=== PATIENT | female | born 1935 | race Caucasian/White ===

== ENCOUNTER 2017-01-01 15:34 | Emergency (ER) | payer MEDICARE, BC ==
[~2017-01-01] VITALS: Ht 165.1 cm; Wt 77.2 kg
[~2017-01-01 15:34] MED LIST: ABAT1INJ SC; GLIP5 PO; GLUCTAB OR; OMEP20TA OR; SPIR100 PO; TOPR25TA2 PO; TOVI8TAB PO; VENL75XR PO; XARE20TA OR
[2017-01-01 15:51] VITALS: BP 168/72; PULSE 60; RESP 16; TEMP 98.5; O2SAT 95
[2017-01-01 15:55] VITALS: RESP 16; O2SAT 95
[2017-01-01] MEDS ORDERED: HYDROmorphone HCL PF 1 MG/ML VIAL IV PUSH ONE (16:15)
[2017-01-01] MEDS ORDERED: SODIUM CHLORIDE 0.9% FLUSH 10 ML FLUSH IVF PRN (16:15)
--- NOTE | 2017-01-01 16:19 | PD ---
HPI Chief Complaint: Fall Time Seen by Provider: 16:08 Travel History International Travel<30 days: No Contact w/Intl Traveler<30days: No Traveled to known affect area: No History of Present Illness HPI 81-year-old female here for evaluation of back pain, right-sided rib pain, right upper quadrant abdominal pain, and buttock pain after slipping and falling in the shower at around 2:30 PM this evening. Patient is on Xarelto for history of pulmonary embolism. She denies head injury or LOC. Pain is moderate to severe, constant, worse with movement, palpation, and inspiration. She denies dyspnea. PFSH Past Medical History Hx Anticoagulant Therapy: Yes Arthritis: Yes (rheumatoid) Asthma: No Autoimmune Disease: Yes (RA) Blood Disorders: No Anxiety: Yes Depression: Yes Heart Rhythm Problems: Yes Cancer: Yes (SKIN MELANOMA) Cardiovascular Problems: No High Cholesterol: No Chemotherapy: No Chest Pain: No Congestive Heart Failure: No COPD: No Cerebrovascular Accident: Yes Diabetes: Yes Patient Takes Glucophage: Yes Diminished Hearing: No Endocrine: Yes Gastrointestinal Disorders: Yes GERD: Yes Genitourinary: No Hepatitis: No Hiatal Hernia: No Hypertension: No Immune Disorder: Yes (RA) Implanted Vascular Access Dvce: Yes Medical other: Yes (reflux,,rheumatoid arthritis) Musculoskeletal: Yes Neurologic: Yes Psychiatric: Yes Reproductive: Yes (frequent urinating) Respiratory: Yes (PULMONARY HYPERTENSION) Immunizations Current: Yes Myocardial Infarction: No Sleep Apnea: No Thyroid Disease: No Ulcer: No Tetanus Vaccination: < 5 Years Influenza Vaccination: Yes Past Surgical History Abdominal Surgery: Yes (gallbladder removed) AICD: No Cardiac Surgery: Yes (pacemaker insertion) Cholecystectomy: Yes Eye Surgery: Yes ([place] cataract surgery) Genitourinary Surgery: Yes (bladder sling) Gynecologic Surgery: Yes (hysterectomy) Hysterectomy: Yes Joint Replacement: Yes (LEFT KNEE REPLACEMENT, RIGHT HIP) Pacemaker: Yes Other Surgery: Yes Social History Alcohol Use: Yes (SPECIAL OCCASIONS) Tobacco Use: No (quit in 1985) Substance Use: No Allergies-Medications (Allergen,Severity, Reaction): Coded Allergies: Morphine (Verified Allergy, Severe, Itching, 01/01/17) itching Penicillin (Verified Allergy, Severe, Itching, 01/01/17) Reported Meds & Prescriptions Reported Meds & Active Scripts Active Reported Prednisone 20 Mg Tab Unknown Dose PO DIRECTED 40 MG twice a day x 3 days, then 20 MG daily x 3 days, then 10 MG daily x 3 days Breo Ellipta Inh (Fluticasone/Vilanterol) 100-25 Mcg/Act Inh 1 Puff INH DAILY Use daily at the same time. Orencia Inj (Abatacept Inj) 125 Mg/Ml Syr Unknown Dose IV FLUSH WEEKLY EVERY 4 WEEKS Xarelto (Rivaroxaban) 20 Mg Tab 20 Mg PO DAILY Macrodantin (Nitrofurantoin Macrocrystal) 50 Mg Cap 50 Mg PO DAILY Metoprolol Succinate ER 24 HR (Metoprolol Succinate) 25 Mg Tab Unknown Dose PO DAILY Effexor XR 24 HR (Venlafaxine HCl) 75 Mg Cap 75 Mg PO DAILY Spironolactone 100 Mg Tab 100 Mg PO DAILY Omeprazole 20 Mg Tab 20 Mg PO DAILY Metformin (Metformin HCl) 500 Mg Tab 500 Mg PO DAILY With a meal Glipizide 5 Mg Tab 5 Mg PO DAILY Take 30 minutes before a meal Review of Systems Except as stated in HPI: all other systems reviewed are Neg Physical Exam Narrative GENERAL: Well-developed, well-nourished, awake, alert, GCS 15, no acute distress. SKIN: Focused skin assessment warm/dry. No lacerations or abrasions. Slight ecchymosis to right foot and ankle which patient states is old. HEAD: Atraumatic. Normocephalic. EYES: Pupils equal and round. No scleral icterus. No injection or drainage. ENT: Mucous membranes pink and moist. NECK: Trachea midline. No JVD. No midline cervical spinous step-off or tenderness. CARDIOVASCULAR: Regular rate and rhythm. Distal pulses brisk and equal bilaterally. RESPIRATORY: No accessory muscle use. Clear to auscultation. Breath sounds equal bilaterally. GASTROINTESTINAL: Abdomen soft, non-tender, nondistended. MUSCULOSKELETAL: No obvious deformities. No clubbing. No cyanosis. No edema. Right anterior/lateral/posterior chest wall tenderness without step-off, without crepitus, without paradoxical chest wall movement. Mild midline thoracic spine and lumbar spine tenderness without step-off. Pelvis is stable. Normal range of motion in all joints and extremities without obvious deformity. NEUROLOGICAL: Awake and alert. No obvious cranial nerve deficits. Motor grossly within normal limits. Normal speech. PSYCHIATRIC: Appropriate mood and affect; insight and judgment normal. Data Data Last Documented VS Vital Signs Date Time Temp Pulse Resp B/P Pulse Ox O2 Delivery O2 Flow Rate FiO2 01/01/17 17:42 60 16 138/55 95 Room Air 01/01/17 15:51 98.5 Orders Comprehensive Metabolic Panel (01/01/17 16:15) Complete Blood Count With Diff (01/01/17 16:15) Prothrombin Time / Inr (Pt) (01/01/17 16:15) Act Partial Throm Time (Ptt) (01/01/17 16:15) Type And Screen (01/01/17 16:15) Chest, Single Ap (01/01/17 16:15) Pelvis, Ap Only (Routine) (01/01/17 16:15) Ct Brain W/O Iv Contrast(Rout) (01/01/17 16:15) Ct Cerv Spine W/O Contrast (01/01/17 16:15) Ct Abd/Pel W Iv Contrast(Rout) (01/01/17 16:15) Ct Thorax/ Chest W Iv Contrast (01/01/17 16:15) Ct Thor Spine W/O Contrast (01/01/17 16:15) Ct Lumb Spine W/O Contrast (01/01/17 16:15) Iv Access Insert/Monitor (01/01/17 16:15) Ecg Monitoring (01/01/17 16:15) Oximetry (01/01/17 16:15) Oxygen Administration (01/01/17 16:15) Sodium Chloride 0.9% Flush (Ns Flush) (01/01/17 16:15) Hydromorphone Pf Inj (Dilaudid Pf Inj) (01/01/17 16:15) Iohexol 350 Inj (Omnipaque 350 Inj) (01/01/17 18:31) Labs Laboratory Tests Test 01/01/17 16:56 White Blood Count 16.4 TH/MM3 Red Blood Count 4.36 MIL/MM3 Hemoglobin 10.8 GM/DL Hematocrit 33.3 % Mean Corpuscular Volume 76.4 FL Mean Corpuscular Hemoglobin 24.7 PG Mean Corpuscular Hemoglobin 32.3 % Concent Red Cell Distribution Width 17.5 % Platelet Count 314 TH/MM3 Mean Platelet Volume 7.6 FL Neutrophils (%) (Auto) 89.0 % Lymphocytes (%) (Auto) 4.6 % Monocytes (%) (Auto) 5.4 % Eosinophils (%) (Auto) 0.2 % Basophils (%) (Auto) 0.8 % Neutrophils # (Auto) 14.6 TH/MM3 Lymphocytes # (Auto) 0.8 TH/MM3 Monocytes # (Auto) 0.9 TH/MM3 Eosinophils # (Auto) 0.0 TH/MM3 Basophils # (Auto) 0.1 TH/MM3 CBC Comment AUTO DIFF Differential Comment AUTO DIFF CONFIRMED Red Cell Morphology Comment NORMAL Prothrombin Time 13.4 SEC Prothromb Time International 1.2 RATIO Ratio Activated Partial 31.7 SEC Thromboplast Time Sodium Level 135 MEQ/L Potassium Level 4.3 MEQ/L Chloride Level 98 MEQ/L Carbon Dioxide Level 25.0 MEQ/L Anion Gap 12 MEQ/L Blood Urea Nitrogen 17 MG/DL Creatinine 1.10 MG/DL Estimat Glomerular Filtration 48 ML/MIN Rate Random Glucose 262 MG/DL Calcium Level 8.9 MG/DL Total Bilirubin 0.7 MG/DL Aspartate Amino Transf 17 U/L (AST/SGOT) Alanine Aminotransferase 19 U/L (ALT/SGPT) Alkaline Phosphatase 91 U/L Total Protein 7.8 GM/DL Albumin 3.6 GM/DL Blood Type A POSITIVE Antibody Screen NEGATIVE MDM Medical Decision Making Medical Screen Exam Complete: Yes Emergency Medical Condition: Yes Differential Diagnosis Intrathoracic trauma, intra-abdominal trauma, intracranial trauma, vertebral injury Narrative Course Initial vital signs show heart rate 60, blood pressure 168/72, pulse ox 95% on room air, oral temp of 98.5F. CBC shows WBC 16.4, hemoglobin 10.8, hematocrit 33.3, platelets 314, neutrophils 89% (The patient is on prednisone) CMP is remarkable for creatinine 1.1, GFR 48, random glucose 262, otherwise unremarkable. Pelvis x-ray: No acute bony injury. Chest x-ray: Pacemaker device is noted with control pack over the left chest. Lungs are focally clear. No pleural effusion is identified. Cardiac contours are satisfactory. There is a fracture of the right proximal humeral neck, potentially old.. CONCLUSION: No acute cardiopulmonary disease. CT head: CONCLUSION: Normal examination for a patient of this age. CT cervical spine: CONCLUSION: 1. No acute findings. Exam within normal limits for age. Facet arthropathy and mild degenerative disc disease. No canal stenosis. CT thorax: CONCLUSION: 1. Minimal left basilar scarring or atelectasis. No effusion or pneumothorax. No traumatic injury identified in the thorax. CT abdomen pelvis: CONCLUSION: 1. 5.4 x 2 cm hematoma in the upper right gluteal region near the midline with associated subcutaneous bruising. No acute fracture. No acute traumatic injury identified within the abdomen and pelvis. CT thoracic spine: CONCLUSION: Normal examination for a patient of this age. CT lumbar spine: CONCLUSION: Normal examination for a patient of this age. Patient was made aware of all findings. She is resting comfortably. I advised her that I would like to admit her for overnight observation, however she states that she has had hematomas in the past and prefers to be discharged home. Pain is controlled in the emergency department after Dilaudid. I will discharge her home with a perception for pain medication. She will hold her Xarelto for the next 2 days. PMD follow-up this week. Patient informed on when to return to the emergency department. She verbalizes understanding and agreement with plan. Diagnosis Primary Impression: Fall Qualified Code: W19.XXXA - Fall, initial encounter Additional Impressions: Hematoma Chest wall contusion Qualified Code: S20.211A - Chest wall contusion, right, initial encounter Referrals: Primary Care Physician 3 days Additional Instructions: Follow-up with your primary care physician this week. Return to the emergency department for worsening symptoms or any other concerns. Scripts Methocarbamol (Robaxin)500 Mg Xir591 Mg PO TID #15 TAB Ref 0 Prov:Bonifacio Hamlin MD 01/01/17 Hydrocodone-Acetaminophen (Lortab)5-325 Mg Tab1 Tab PO Q6H PRN (PAIN) #15 TAB Ref 0 Prov:Bonifacio Hamlin MD 01/01/17 Disposition: 01 DISCHARGE HOME Condition: Stable Bonifacio Hamlin MD January 01, 2017 16:19
[2017-01-01] MEDS ORDERED: GLIP5TAB8 PO (16:27)
[2017-01-01] MEDS ORDERED: PRED20 PO (16:27)
[2017-01-01] MEDS ORDERED: VENL75XR PO (16:27)
[2017-01-01] MEDS ORDERED: ABAT1INJ IV FLUSH (16:27)
[2017-01-01] MEDS ORDERED: SPIR100T PO (16:27)
[2017-01-01] MEDS ORDERED: METO25TA6 PO (16:27)
[2017-01-01] MEDS ORDERED: FLUT1INH INH (16:27)
[2017-01-01] MEDS ORDERED: XARE20TA PO (16:27)
[2017-01-01] MEDS ORDERED: METF500T PO (16:27)
[2017-01-01] MEDS ORDERED: OMEP20TA PO (16:27)
[2017-01-01] MEDS ORDERED: NITR50CA27 PO (16:27)
--- NOTE | 2017-01-01 16:55 | RADHPO ---
EXAM DATE/TIME: 01/01/2017 16:27 [facility] COMPARISON: No previous studies available for comparison. INDICATIONS : Fell, complains of low back pain pain. MEDICAL HISTORY : Diabetes mellitus type II. Rheumatoid arthritis. SURGICAL HISTORY : Pacemaker. Right hip pinning. ENCOUNTER: Initial ACUITY: 1 day PAIN SCORE: 10/10 LOCATION: Bilateral pelvis FINDINGS: There has been previous pinning of the right hip. There is no evidence of hip fracture or dislocation . No displaced pelvic fracture is identified. There are degenerative changes in the visualized spine. Buttock granulomas are present bilaterally. CONCLUSION: No acute bony injury Oracio Burnham MD on January 01, 2017 at 16:53 Board Certified Radiologist. This report was verified electronically.
--- NOTE | 2017-01-01 16:57 | RADHPO ---
EXAM DATE/TIME: 01/01/2017 16:32 [facility] COMPARISON: No previous studies available for comparison. INDICATIONS : Right rib pain. Fall. MEDICAL HISTORY : Diabetes mellitus type II. Rheumatoid arthritis. SURGICAL HISTORY : Pacemaker. ENCOUNTER: Initial ACUITY: 1 day PAIN SCORE: 10/10 LOCATION: Right chest FINDINGS: Pacemaker device is noted with control pack over the left chest. Lungs are focally clear. No pleural effusion is identified. Cardiac contours are satisfactory. There is a fracture of the right proximal humeral neck, potentially old.. CONCLUSION: No acute cardiopulmonary disease. Oracio Burnham MD on January 01, 2017 at 16:53 Board Certified Radiologist. This report was verified electronically.
[2017-01-01 17:10] LABS: AUTOMATED NEUTROPHIL # 14.6 TH/MM3 (1.8-7.7); BASOPHIL # 0.1 TH/MM3 (0-0.2); BASOPHIL % 0.8 % (0.0-2.0); EOSINOPHIL % 0.2 % (0.0-4.0); HEMATOCRIT 33.3 % (35.0-46.0); LYMPH % 4.6 % (9.0-44.0); LYMPHOCYTE # 0.8 TH/MM3 (1.0-4.8); MEAN CELL VOLUME 76.4 FL (80.0-100.0); MEAN CORPUSCULAR HEMOGLOBIN 24.7 PG (27.0-34.0); MEAN CORPUSCULAR HGB CONC 32.3 % (32.0-36.0); MONO % 5.4 % (0.0-8.0); PLATELET COUNT 314 TH/MM3 (150-450); RED BLOOD COUNT 4.36 MIL/MM3 (4.00-5.30); RED CELL DISTRIBUTION WIDTH 17.5 % (11.6-17.2); WHITE BLOOD COUNT 16.4 TH/MM3 (4.0-11.0)
[2017-01-01 17:12] LABS: HEMO FLAGS AUTO DIFF
[2017-01-01 17:19] LABS: CHLORIDE 98 MEQ/L (98-107); POTASSIUM 4.3 MEQ/L (3.5-5.1); SODIUM (NA) 135 MEQ/L (136-145)
[2017-01-01 17:23] LABS: ANION GAP 12 MEQ/L (5-15); APTT (PATIENT) 31.7 SEC (24.3-30.1); BLOOD UREA NITROGEN 17 MG/DL (7-18); INTERNATIONAL NORMALIZED RATIO 1.2 RATIO; PROTHROMBIN TIME - PATIENT 13.4 SEC (9.8-11.6)
[2017-01-01 17:26] LABS: ALT (GPT) 19 U/L (10-53); AST (GOT) 17 U/L (15-37); GLOMERULAR FILTRATION RATE 48 ML/MIN (>89)
[2017-01-01 17:28] LABS: TOTAL BILIRUBIN ADULT 0.7 MG/DL (0.2-1.0)
[2017-01-01 17:29] LABS: ALKALINE PHOSPHATASE 91 U/L (45-117)
[2017-01-01 17:39] LABS: SCAN/DIFF AUTO DIFF CONFIRMED
[2017-01-01 17:42] VITALS: BP 138/55; PULSE 60; RESP 16; O2SAT 95
[2017-01-01] MEDS ORDERED: IOHEXOL 350 MG/ML 10 ML VIAL (for RAD DIAG) IV ONE (18:31)
--- NOTE | 2017-01-01 18:42 | RADHPO ---
EXAM DATE/TIME: 01/01/2017 17:48 [facility] COMPARISON: No previous studies available for comparison. INDICATIONS : Fell in shower. RADIATION DOSE: 60.41 CTDIvol (mGy) MEDICAL HISTORY : Cardiovascular disease. Gastroesophageal reflux disease. Cerebrovascular disease.Diabetes. SURGICAL HISTORY : Pacemaker. Cholecystectomy.Hysterectomy. ENCOUNTER: Initial ACUITY: 1 day PAIN SCALE: 3/10 LOCATION: cranial TECHNIQUE: Multiple contiguous axial images were obtained of the head. Using automated exposure control and adj ustment of the mA and/or kV according to patient size, radiation dose was kept as low as reasonably a chievable to obtain optimal diagnostic quality images. FINDINGS: CEREBRUM: The ventricles are normal for age. No evidence of midline shift, mass lesion, hemorrhage or acute in farction. No extra-axial fluid collections are seen. POSTERIOR FOSSA: The cerebellum and brainstem are intact. The 4th ventricle is midline. The cerebellopontine angle i s unremarkable. EXTRACRANIAL: The visualized portion of the orbits is intact. SKULL: The calvaria is intact. No evidence of skull fracture. CONCLUSION: Normal examination for a patient of this age. Horace Russo MD on January 01, 2017 at 18:40 Board Certified Radiologist. This report was verified electronically.
--- NOTE | 2017-01-01 18:44 | RADHPO ---
EXAM DATE/TIME: 01/01/2017 17:48 [facility] COMPARISON: No previous studies available for comparison. INDICATIONS : Fell in shower. RADIATION DOSE: 25.98 CTDIvol (mGy) MEDICAL HISTORY : Cerebrovascular disease. Cardiovascular disease Gastroesophageal reflux disease.Diabetes. SURGICAL HISTORY : Pacemaker. Cholecystectomy.Hysterectomy. ENCOUNTER: Initial ACUITY: 1 day PAIN SCALE: 3/10 LOCATION: neck TECHNIQUE: Volumetric scanning of the cervical spine was performed. Multiplanar reconstructions in the sagittal, coronal and oblique axial planes were performed. Using automated exposure control and adjustment o f the mA and/or kV according to patient size, radiation dose was kept as low as reasonably achievable to obtain optimal diagnostic quality images. FINDINGS: VERTEBRAE: Normal vertebral body height. ALIGNMENT: No evidence of subluxation. C2-C3: The bony spinal canal is normal in size. No evidence of disc bulge or herniation. The neural forami na are bilaterally patent. C3-C4: The bony spinal canal is normal in size. No evidence of disc bulge or herniation. The neural forami na are bilaterally patent. C4-C5: The bony spinal canal is normal in size. No evidence of disc bulge or herniation. The neural forami na are bilaterally patent. C5-C6: The bony spinal canal is normal in size. No evidence of disc bulge or herniation. The neural forami na are bilaterally patent. C6-C7: The bony spinal canal is normal in size. No evidence of disc bulge or herniation. The neural forami na are bilaterally patent. C7-T1: The bony spinal canal is normal in size. No evidence of disc bulge or herniation. The neural forami na are bilaterally patent. CONCLUSION: 1. No acute findings. Exam within normal limits for age. Facet arthropathy and mild degenerative disc disease. No canal stenosis. Horace Russo MD on January 01, 2017 at 18:41 Board Certified Radiologist. This report was verified electronically.
--- NOTE | 2017-01-01 18:48 | RADHPO ---
EXAM DATE/TIME: 01/01/2017 17:55 [facility] COMPARISON: No previous studies available for comparison. INDICATIONS : Fell in shower. IV CONTRAST: 75 cc Omnipaque 350 (iohexol) IV ; Cumulative dose for multiple exams. RADIATION DOSE: 23.79 CTDIvol (mGy) ; Combined studies - Thorax/Abdomen/Pelvis MEDICAL HISTORY : Cerebrovascular disease. Cardiovascular disease Gastroesophageal reflux disease.Diabetes. SURGICAL HISTORY : Pacemaker. Hysterectomy.Cholecystectomy. ENCOUNTER: Initial ACUITY: 1 day PAIN SCALE: 3/10 LOCATION: chest TECHNIQUE: Volumetric scanning of the chest was performed. Using automated exposure control and adjustment of t he mA and/or kV according to patient size, radiation dose was kept as low as reasonably achievable to obtain optimal diagnostic quality images. FINDINGS: Minimal subsegmental atelectasis or scarring left lung base. No pleural or pericardial effusion. No a denopathy. Mild cardiomegaly. Pacer leads in right atrium and right ventricle. No acute bony abnormal ity identified. CONCLUSION: 1. Minimal left basilar scarring or atelectasis. No effusion or pneumothorax. No traumatic injury dolly ntified in the thorax. Horace Russo MD on January 01, 2017 at 18:43 Board Certified Radiologist. This report was verified electronically.
--- NOTE | 2017-01-01 18:52 | RADHPO ---
EXAM DATE/TIME: 01/01/2017 17:55 [facility] COMPARISON: No previous studies available for comparison. INDICATIONS : Fell in shower. IV CONTRAST: 75 cc Omnipaque 350 (iohexol) IV ; Cumulative dose for multiple exams. ORAL CONTRAST: No oral contrast ingested. RADIATION DOSE: 23.79 CTDIvol (mGy) ; Combined studies - Thorax/Abdomen/Pelvis MEDICAL HISTORY : Cardiovascular disease. Cerebrovascular disease. Gastroesophageal reflux disease.Diabetes. SURGICAL HISTORY : Pacemaker. Cholecystectomy.Hysterectomy. ENCOUNTER: Initial ACUITY: 1 day PAIN SCALE: 2/10 LOCATION: abdomen TECHNIQUE: Volumetric scanning of the abdomen and pelvis was performed. Using automated exposure control and ad justment of the mA and/or kV according to patient size, radiation dose was kept as low as reasonably achievable to obtain optimal diagnostic quality images. FINDINGS: There is a 5.4 cm hematoma in the upper right gluteal region near midline. Subcutaneous bruising pres ent in the soft tissues. Benign-appearing calcifications also present in the soft tissues of the post erior pelvis. No acute fracture is identified. There is previous screw fixation of the right femur. No acute findings in the liver, spleen, adrenals, kidneys or pancreas. Previous cholecystectomy. No f ree fluid or free air. No bowel obstruction. Small hiatal hernia. CONCLUSION: 1. 5.4 x 2 cm hematoma in the upper right gluteal region near the midline with associated subcutaneou s bruising. No acute fracture. No acute traumatic injury identified within the abdomen and pelvis. Horace Russo MD on January 01, 2017 at 18:47 Board Certified Radiologist. This report was verified electronically.
--- NOTE | 2017-01-01 19:31 | RADHPO ---
EXAM DATE/TIME: 01/01/2017 17:55 [facility] COMPARISON: No previous studies available for comparison. INDICATIONS : Fell in shower. RADIATION DOSE: ; Reconstructed from previous dataset MEDICAL HISTORY : Cerebrovascular disease. Cardiovascular disease SURGICAL HISTORY : Pacemaker. Cholecystectomy. ENCOUNTER: Initial ACUITY: 1 day PAIN SCALE: 5/10 LOCATION: spine TECHNIQUE: Volumetric scanning of the lumbar spine was performed. Multiplanar reconstructions in the sagittal, coronal and oblique axial planes were performed. Using automated exposure control and adjustment of the mA and/or kV according to patient size, radiation dose was kept as low as reasonably achievable t o obtain optimal diagnostic quality images. FINDINGS: VERTEBRAE: Normal vertebral body height. ALIGNMENT: No evidence of subluxation. T12-L1: The thecal sac has a normal diameter. No evidence of disc bulge or protrusion. The neural foramina are patent bilaterally. L1-L2: The thecal sac has a normal diameter. No evidence of disc bulge or protrusion. The neural foramina are patent bilaterally. L2-L3: The thecal sac has a normal diameter. No evidence of disc bulge or protrusion. The neural foramina are patent bilaterally. L3-L4: The thecal sac has a normal diameter. No evidence of disc bulge or protrusion. The neural foramina are patent bilaterally. L4-L5: The thecal sac has a normal diameter. No evidence of disc bulge or protrusion. The neural foramina are patent bilaterally. L5-S1: The thecal sac has a normal diameter. No evidence of disc bulge or protrusion. The neural foramina are patent bilaterally. CONCLUSION: Normal examination for a patient of this age. Horace Russo MD on January 01, 2017 at 19:26 Board Certified Radiologist. This report was verified electronically.
--- NOTE | 2017-01-01 19:35 | RADHPO ---
EXAM DATE/TIME: 01/01/2017 17:55 [facility] COMPARISON: No previous studies available for comparison. INDICATIONS : Fell in shower. RADIATION DOSE: ; Reconstructed from previous dataset MEDICAL HISTORY : Cerebrovascular disease. Cardiovascular disease SURGICAL HISTORY : Pacemaker. Cholecystectomy. Hysterectomy. ENCOUNTER: Initial ACUITY: 1 day PAIN SCALE: 4/10 LOCATION: Spine TECHNIQUE: Volumetric scanning of the thoracic spine was performed. Multiplanar reconstructions in the sagittal , coronal and oblique axial planes were performed. Using automated exposure control and adjustment o f the mA and/or kV according to patient size, radiation dose was kept as low as reasonably achievable to obtain optimal diagnostic quality images. FINDINGS: The vertebral bodies of the thoracic spine are in normal alignment without evidence of subluxation. Vertebral body height is maintained. No fractures are seen. T1-T2: Normal. T2-T3: The thecal sac has a normal diameter. No evidence of disc bulge or protrusion. T3-T4: The thecal sac has a normal diameter. No evidence of disc bulge or protrusion. T4-T5: The thecal sac has a normal diameter. No evidence of disc bulge or protrusion. T5-T6: The thecal sac has a normal diameter. No evidence of disc bulge or protrusion. T6-T7: The thecal sac has a normal diameter. No evidence of disc bulge or protrusion. T7-T8: The thecal sac has a normal diameter. No evidence of disc bulge or protrusion. T8-T9: The thecal sac has a normal diameter. No evidence of disc bulge or protrusion. T9-T10: The thecal sac has a normal diameter. No evidence of disc bulge or protrusion. T10-T11: The thecal sac has a normal diameter. No evidence of disc bulge or protrusion. T11-T12: The thecal sac has a normal diameter. No evidence of disc bulge or protrusion. T12-L1: The thecal sac has a normal diameter. No evidence of disc bulge or protrusion. CONCLUSION: Normal examination for a patient of this age. Horace Russo MD on January 01, 2017 at 19:30 Board Certified Radiologist. This report was verified electronically.
[2017-01-01] MEDS ORDERED: HYDR-3533 PO (19:45)
[2017-01-01] MEDS ORDERED: ROBA500T PO (19:45)
[2017-01-01 20:23] VITALS: BP 144/62
== END 2017-01-01 20:26 | disposition home or self-care (01) ==
LOC: PHED 15:34
DX: S20.211A Contusion of right front wall of thorax, initial encounter (principal); W18.2XXA Fall in (into) shower or empty bathtub, initial encounter; Y93.9 Activity, unspecified; Y92.012 Bathroom of single-family (private) house as the place of occurrence of the external cause; Y99.9 Unspecified external cause status; Z79.01 Long term (current) use of anticoagulants; M06.9 Rheumatoid arthritis, unspecified; Z86.73 Personal history of transient ischemic attack (TIA), and cerebral infarction without residual deficits; E11.9 Type 2 diabetes mellitus without complications; I27.2 Other secondary pulmonary hypertension; Z95.0 Presence of cardiac pacemaker; Z96.641 Presence of right artificial hip joint; Z96.651 Presence of right artificial knee joint; Z79.84 Long term (current) use of oral hypoglycemic drugs
CPT/HCPCS: 70450; 71010; 71260; 72125; 72128; 72131; 72170; 74177; 80053; 85025; 85610; 85730; 86850; 86900; 86901; 96374; 99285; J1170; Q9967

== ENCOUNTER → 2017-04-25 | Outpatient (CLI) | payer MEDICARE, BC ==
[~2017-04-25] MED LIST changes: +ABAT1INJ IV FLUSH; -ABAT1INJ SC; +FLUT1INH INH; -GLIP5 PO; +GLIP5TAB8 PO; -GLUCTAB OR; +HYDR-3533 PO; +METF500T PO; +METO25TA6 PO; +NITR50CA27 PO; -OMEP20TA OR; +OMEP20TA PO; +PRED20 PO; +ROBA500T PO; -SPIR100 PO; +SPIR100T PO; -TOPR25TA2 PO; -TOVI8TAB PO; -XARE20TA OR; +XARE20TA PO
[2017-04-25 17:17] LABS: POTASSIUM 4.1 MEQ/L (3.5-5.1)
== END ==
LOC: PLAB 14:26
DX: I50.9 Heart failure, unspecified (principal)
CPT/HCPCS: 36415; 80048; 83880

== ENCOUNTER → 2017-06-05 | Outpatient (CLI) | payer MEDICARE, BC ==
[2017-06-05 15:03] LABS: ANION GAP 7 MEQ/L (5-15); BLOOD UREA NITROGEN 14 MG/DL (7-18); CHLORIDE 103 MEQ/L (98-107); GLOMERULAR FILTRATION RATE 55 ML/MIN (>89); GLUCOSE,FASTING 137 MG/DL (74-99); POTASSIUM 4.6 MEQ/L (3.5-5.1); SODIUM (NA) 137 MEQ/L (136-145)
[2017-06-05 15:08] LABS: AUTOMATED NEUTROPHIL # 5.4 TH/MM3 (1.8-7.7); BASOPHIL % 0.5 % (0.0-2.0); EOSINOPHIL # 0.3 TH/MM3 (0-0.4); EOSINOPHIL % 3.8 % (0.0-4.0); HEMATOCRIT 32.9 % (35.0-46.0); HEMO FLAGS DIFF FINAL; LYMPH % 19.8 % (9.0-44.0); LYMPHOCYTE # 1.6 TH/MM3 (1.0-4.8); MEAN CELL VOLUME 72.1 FL (80.0-100.0); MEAN CORPUSCULAR HEMOGLOBIN 22.6 PG (27.0-34.0); MEAN CORPUSCULAR HGB CONC 31.4 % (32.0-36.0); MONO % 8.9 % (0.0-8.0); PLATELET COUNT 257 TH/MM3 (150-450); RED BLOOD COUNT 4.56 MIL/MM3 (4.00-5.30); RED CELL DISTRIBUTION WIDTH 18.8 % (11.6-17.2); WHITE BLOOD COUNT 8.1 TH/MM3 (4.0-11.0)
[2017-06-05 15:22] LABS: ALKALINE PHOSPHATASE 100 U/L (45-117); ALT (GPT) 17 U/L (10-53); AST (GOT) 18 U/L (15-37); HDL CHOLESTEROL 49.8 MG/DL (40.0-60.0); LDL CHOLESTEROL 67 MG/DL (0-99); TOTAL BILIRUBIN ADULT 0.5 MG/DL (0.2-1.0); TRANSFERRIN IRON PROFILE 374 MG/DL (200-360)
[2017-06-05 16:00] LABS: HEMOGLOBIN A1a 0.9 %; HEMOGLOBIN A1b 1.2 %; HEMOGLOBIN Ao 80.6 %; HEMOGLOBIN F 1.3 %; HEMOGLOBIN LA1C 2.2 %; HEMOGLOBIN P3 4.5 %
== END ==
LOC: PLAB 10:18
PROVIDERS: ATTEND Family Medicine
DX: I48.91 Unspecified atrial fibrillation (principal); E11.9 Type 2 diabetes mellitus without complications; E78.5 Hyperlipidemia, unspecified; R53.83 Other fatigue; D64.9 Anemia, unspecified
CPT/HCPCS: 36415; 80053; 80061; 83036; 83540; 83550; 84443; 85025

== ENCOUNTER 2017-10-07 11:07 | Emergency (ER) | payer MEDICARE, BC ==
[~2017-10-07] VITALS: Ht 165.1 cm; Wt 74.0 kg
[~2017-10-07 11:07] MED LIST changes: +METO1TAB42 PO; -METO25TA6 PO; -OMEP20TA PO; +OMEP20TA93 PO
[2017-10-07 11:09] VITALS: BP 157/70; PULSE 60; RESP 18; TEMP 98.7; O2SAT 95
[2017-10-07] MEDS ORDERED: ERYT250C (11:25)
[2017-10-07] MEDS ORDERED: SODIUM CHLORIDE 0.9% FLUSH 10 ML FLUSH IVF PRN (11:30)
[2017-10-07] MEDS: RESP: ALBUTEROL 2.5 MG/IPRATROPIUM 0.5 MG NEB (SCH) INH ×2 (11:40→11:44)
--- NOTE | 2017-10-07 11:53 | PD ---
HPI . Eye irritation and cough Chief Complaint: Cold / Flu Symptoms Time Seen by Provider: 11:19 Travel History International Travel<30 days: No Contact w/Intl Traveler<30days: No Traveled to known affect area: No History of Present Illness HPI Patient presents with the chief complaint of irritated eyes and coughing. Onset was 4 days ago. She states that she had the onset of symptoms 4 days ago but then she states that she saw her primary care physician 5 days ago for these problems and was prescribed Zithromax and prednisone. She states that she has finished the Zithromax and prednisone but continues to have symptoms. She states that both eyes are the same. She states that she wakes up with crusting and has yellow drainage from both eyes. She states that her cough is exacerbated by laying down. Cough is productive of phlegm. She has had no associated fever. The patient denies any history of heart or lung disease. However, on review of her records she has a history of chronic pulmonary hypertension and systolic congestive heart failure. PFSH Past Medical History Hx Anticoagulant Therapy: Yes (xeraltp) Arthritis: Yes (rheumatoid) Asthma: No Autoimmune Disease: Yes (RA) Blood Disorders: No Anxiety: Yes Depression: Yes Heart Rhythm Problems: Yes Cancer: Yes (SKIN MELANOMA) Cardiovascular Problems: No High Cholesterol: No Chemotherapy: No Chest Pain: No Congestive Heart Failure: No COPD: No Cerebrovascular Accident: Yes Diabetes: Yes Patient Takes Glucophage: Yes Diminished Hearing: No Endocrine: Yes Gastrointestinal Disorders: Yes GERD: Yes Genitourinary: No Hepatitis: No Hiatal Hernia: No Hypertension: No Immune Disorder: Yes (RA) Implanted Vascular Access Dvce: Yes Medical other: Yes (reflux,,rheumatoid arthritis) Musculoskeletal: Yes Neurologic: Yes Psychiatric: Yes Reproductive: Yes (frequent urinating) Respiratory: Yes (PULMONARY HYPERTENSION) Immunizations Current: Yes Myocardial Infarction: No Sleep Apnea: No Thyroid Disease: No Ulcer: No Tetanus Vaccination: > 5 Years Influenza Vaccination: Yes ?: Not Past Surgical History Abdominal Surgery: Yes (gallbladder removed) AICD: No Body Medical Devices: PACEMAKER Cardiac Surgery: Yes (pacemaker insertion) Cholecystectomy: Yes Eye Surgery: Yes ([place] cataract surgery) Genitourinary Surgery: Yes (bladder sling) Gynecologic Surgery: Yes (hysterectomy) Hysterectomy: Yes Joint Replacement: Yes (LEFT KNEE REPLACEMENT, RIGHT HIP) Pacemaker: Yes Other Surgery: Yes Social History Alcohol Use: Yes (SPECIAL OCCASIONS) Tobacco Use: No (quit in 1985) Substance Use: No Allergies-Medications (Allergen,Severity, Reaction): Coded Allergies: morphine (Unverified Allergy, Severe, Itching, 10/07/17) itching penicillin G (Unverified Allergy, Severe, Itching, 10/07/17) Reported Meds & Prescriptions Reported Meds & Active Scripts Active Reported Erythromycin (Erythromycin Base) 250 Mg Capsule.dr Unknown Dose Prednisone 20 Mg Tab Unknown Dose PO DIRECTED 40 MG twice a day x 3 days, then 20 MG daily x 3 days, then 10 MG daily x 3 days Orencia Inj (Abatacept Inj) 125 Mg/Ml Syr Unknown Dose IV FLUSH WEEKLY EVERY 4 WEEKS Xarelto (Rivaroxaban) 20 Mg Tab 20 Mg PO DAILY Macrodantin (Nitrofurantoin Macrocrystal) 50 Mg Cap 50 Mg PO DAILY Metoprolol Succinate ER 24 HR (Metoprolol Succinate) 25 Mg Tab Unknown Dose PO DAILY Effexor XR 24 HR (Venlafaxine HCl) 75 Mg Cap 75 Mg PO DAILY Spironolactone 100 Mg Tab 100 Mg PO DAILY Omeprazole 20 Mg Tab 20 Mg PO DAILY Metformin (Metformin HCl) 500 Mg Tab 500 Mg PO DAILY With a meal Glipizide 5 Mg Tab 5 Mg PO DAILY Take 30 minutes before a meal Review of Systems Except as stated in HPI: all other systems reviewed are Neg General / Constitutional: No: Fever, Chills Eyes: Positive: Drainage, Redness Respiratory: Positive: Cough Physical Exam Narrative GENERAL: Awake and alert and in no acute distress. SKIN: Warm and dry. HEAD: Normocephalic/atraumatic. EYES: Pupils are equal. Extraocular movements are intact. Conjunctiva are mildly injected bilaterally. No purulent drainage noted now. ENT: Oropharynx is clear. NECK: Normal range of motion. Supple with no cervical lymph nodes palpated. CARDIOVASCULAR: Regular rate and rhythm. RESPIRATORY: Nonlabored respirations. She has some diffuse fine rales with some occasional coarse expiratory wheezes. MUSCULOSKELETAL: Atraumatic. NEUROLOGICAL: Nonfocal. PSYCHIATRIC: Appropriate mood and affect. Data Data Last Documented VS Vital Signs Date Time Temp Pulse Resp B/P (MAP) Pulse Ox O2 Delivery O2 Flow Rate FiO2 10/07/17 12:48 62 18 135/75 (95) 96 Room Air 10/07/17 11:09 98.7 Orders Orders Complete Blood Count With Diff (10/07/17 11:28) Basic Metabolic Panel (Bmp) (10/07/17 11:28) Iv Access Insert/Monitor (10/07/17 11:28) Chest, Pa & Lat (10/07/17 11:28) Sodium Chloride 0.9% Flush (Ns Flush) (10/07/17 11:30) Albuterol-Ipratropium Neb (Duoneb Neb) (10/07/17 11:30) Labs Laboratory Tests Test 10/07/17 11:45 White Blood Count 16.7 TH/MM3 Red Blood Count 3.99 MIL/MM3 Hemoglobin 8.8 GM/DL Hematocrit 27.1 % Mean Corpuscular Volume 67.9 FL Mean Corpuscular Hemoglobin 22.1 PG Mean Corpuscular Hemoglobin Concent 32.6 % Red Cell Distribution Width 17.0 % Platelet Count 255 TH/MM3 Mean Platelet Volume 8.0 FL Neutrophils (%) (Auto) 82.4 % Lymphocytes (%) (Auto) 6.5 % Monocytes (%) (Auto) 9.9 % Eosinophils (%) (Auto) 0.3 % Basophils (%) (Auto) 0.9 % Neutrophils # (Auto) 13.6 TH/MM3 Lymphocytes # (Auto) 1.1 TH/MM3 Monocytes # (Auto) 1.7 TH/MM3 Eosinophils # (Auto) 0.1 TH/MM3 Basophils # (Auto) 0.2 TH/MM3 CBC Comment AUTO DIFF Differential Comment AUTO DIFF CONFIRMED Platelet Estimate NORMAL Platelet Morphology Comment NORMAL Ovalocytes 1+ Blood Urea Nitrogen 17 MG/DL Creatinine 1.10 MG/DL Random Glucose 343 MG/DL Calcium Level 8.8 MG/DL Sodium Level 135 MEQ/L Potassium Level 3.8 MEQ/L Chloride Level 100 MEQ/L Carbon Dioxide Level 23.0 MEQ/L Anion Gap 12 MEQ/L Estimat Glomerular Filtration Rate 47 ML/MIN [facility] Medical Decision Making Medical Screen Exam Complete: Yes Emergency Medical Condition: Yes Medical Record Reviewed: Yes (this patient's medical history includes DM, HTN, HL, RA, pulm HTN, CHF. She also has a pacemaker.) Differential Diagnosis Differential diagnosis includes but is not limited to chemical irritation, allergic conjunctivitis, viral conjunctivitis, bacterial conjunctivitis, chronic dry eyes. Differential diagnosis includes but is not limited to viral respiratory illness , bronchitis, pneumonia, allergies, CHF, asthma/COPD. Narrative Course This patient presents with conjunctivitis and cough. I suspect that the etiology of both is allergic possibly viral. I will treat the conjunctivitis with erythromycin ophthalmic ointment. I will discharge her on an oral antihistamine. This patient does not believe that she has any underlying lung issues but in fact has a history of congestive heart failure and pulmonary hypertension. These reasons, I am working up the cough. In the meantime, she will be given duo nebs. CXR: PA and lateral views of the chest demonstrate the lungs to be symmetrically aerated without evidence of mass, infiltrate or effusion. There is stable chronic interstitial changes bilaterally. The cardiomediastinal contours are unremarkable and stable. Osseous structures are intact and stable a pacemaker on the left chest. No significant change compared to the prior study.. Vital Signs Date Time Temp Pulse Resp B/P (MAP) Pulse Ox O2 Delivery O2 Flow Rate FiO2 10/07/17 12:48 62 18 135/75 (95) 96 Room Air 10/07/17 11:19 60 18 94 Room Air 10/07/17 11:09 98.7 60 18 157/70 (99) 95 This patient is stable for discharge to home. Diagnosis Primary Impression: Conjunctivitis Qualified Codes: H10.33 - Unspecified acute conjunctivitis, bilateral Additional Impression: Cough Patient Instructions: Acute Cough (ED), Conjunctivitis (DC), General Instructions Med/Other Pt SpecificInfo: Prescription(s) given Scripts Hydrocodone-Chlorpheniramine 12 HR Liq (Tussionex Pennkinetic Ext 12 HR Liq) 10- 8 Mg/5 Ml Susp 5 ML PO Q12H Y for COUGH AND/OR COLD SYMPTOMS, #60 ML 0 Refills Prov: Venus Raygoza MD 10/07/17 Fexofenadine (Janna Allergy) 180 Mg Tab 180 MG PO DAILY for Allergy Management, #30 TAB 0 Refills Prov: Venus Raygoza MD 10/07/17 Erythromycin Opth Oint (Erythromycin Opth Oint) 5 Mg/Gm Oint 1 APPLIC EACH EYE QID for Infection for 5 Days, #1 TUBE 0 Refills Prov: Venus Raygoza MD 10/07/17 Disposition: 01 DISCHARGE HOME Condition: Stable Venus Raygoza MD Oct 07, 2017 11:53
[2017-10-07 11:58] LABS: AUTOMATED NEUTROPHIL # 13.6 TH/MM3 (1.8-7.7); BASOPHIL # 0.2 TH/MM3 (0-0.2); BASOPHIL % 0.9 % (0.0-2.0); EOSINOPHIL # 0.1 TH/MM3 (0-0.4); EOSINOPHIL % 0.3 % (0.0-4.0); HEMATOCRIT 27.1 % (35.0-46.0); HEMOGLOBIN 8.8 GM/DL (11.6-15.3); LYMPH % 6.5 % (9.0-44.0); LYMPHOCYTE # 1.1 TH/MM3 (1.0-4.8); MEAN CELL VOLUME 67.9 FL (80.0-100.0); MEAN CORPUSCULAR HEMOGLOBIN 22.1 PG (27.0-34.0); MEAN CORPUSCULAR HGB CONC 32.6 % (32.0-36.0); MONO % 9.9 % (0.0-8.0); MONOCYTE # 1.7 TH/MM3 (0-0.9); NEUT % 82.4 % (16.0-70.0); PLATELET COUNT 255 TH/MM3 (150-450); RED BLOOD COUNT 3.99 MIL/MM3 (4.00-5.30); WHITE BLOOD COUNT 16.7 TH/MM3 (4.0-11.0)
[2017-10-07 12:20] LABS: CALCIUM 8.8 MG/DL (8.5-10.1)
[2017-10-07 12:24] LABS: CREATININE 1.1 MG/DL (0.50-1.00)
[2017-10-07 12:34] LABS: OVALOCYTES 1+ (NORMAL)
[2017-10-07 12:48] VITALS: BP 135/75; PULSE 62; RESP 18; O2SAT 96
--- NOTE | 2017-10-07 12:54 | RADRPT ---
EXAM DATE/TIME: 10/07/2017 12:23 [facility] COMPARISON: CHEST SINGLE AP, January 01, 2017, 16:32. INDICATIONS : Shortness of breath and cough. MEDICAL HISTORY : Diabetes mellitus type II. Rheumatoid arthritis. A-Fib SURGICAL HISTORY : Pacemaker. ENCOUNTER: Initial ACUITY: 4 - 6 days PAIN SCORE: 0/10 LOCATION: Bilateral chest FINDINGS: PA and lateral views of the chest demonstrate the lungs to be symmetrically aerated without evidence of mass, infiltrate or effusion. There is stable chronic interstitial changes bilaterally. The cardio mediastinal contours are unremarkable and stable. Osseous structures are intact and stable a pacemak er on the left chest. No significant change compared to the prior study.. CONCLUSION: No acute disease. No significant change has occurred. Bryce Parry MD on October 07, 2017 at 12:52 Board Certified Radiologist. This report was verified electronically.
[2017-10-07] MEDS ORDERED: TUSSSUS2 PO (13:01)
[2017-10-07] MEDS ORDERED: ERYTOIN10 EACH EYE (13:01)
[2017-10-07] MEDS ORDERED: FEXO15TA PO (13:01)
== END 2017-10-07 13:14 | disposition home or self-care (01) ==
LOC: PHED 11:07
DX: H10.9 Unspecified conjunctivitis (principal); R05 Cough; I27.20 Pulmonary hypertension, unspecified; I50.9 Heart failure, unspecified; M06.9 Rheumatoid arthritis, unspecified; E11.9 Type 2 diabetes mellitus without complications; F41.9 Anxiety disorder, unspecified; F32.9 Major depressive disorder, single episode, unspecified; Z86.73 Personal history of transient ischemic attack (TIA), and cerebral infarction without residual deficits
CPT/HCPCS: 71046; 80048; 85025; 94640; 94664; 99284

== ENCOUNTER → 2017-12-10 | Outpatient (CLI) | payer MEDICARE, BC ==
[~2017-12-10] MED LIST changes: +ERYT250C; +ERYTOIN10 EACH EYE; +FEXO15TA PO; -FLUT1INH INH; -HYDR-3533 PO; -ROBA500T PO; +TUSSSUS2 PO
[2017-12-10 13:47] LABS: AUTOMATED NEUTROPHIL # 4.7 TH/MM3 (1.8-7.7); BASOPHIL # 0.1 TH/MM3 (0-0.2); BASOPHIL % 1.1 % (0.0-2.0); EOSINOPHIL # 0.3 TH/MM3 (0-0.4); EOSINOPHIL % 4.5 % (0.0-4.0); HEMATOCRIT 29.8 % (35.0-46.0); HEMOGLOBIN 9.2 GM/DL (11.6-15.3); LYMPH % 18.6 % (9.0-44.0); LYMPHOCYTE # 1.3 TH/MM3 (1.0-4.8); MEAN CELL VOLUME 66.2 FL (80.0-100.0); MEAN CORPUSCULAR HEMOGLOBIN 20.3 PG (27.0-34.0); MEAN CORPUSCULAR HGB CONC 30.7 % (32.0-36.0); MEAN PLATELET VOLUME 7.9 FL (7.0-11.0); MONO % 8.9 % (0.0-8.0); MONOCYTE # 0.6 TH/MM3 (0-0.9); NEUT % 66.9 % (16.0-70.0); PLATELET COUNT 260 TH/MM3 (150-450); RED CELL DISTRIBUTION WIDTH 19.5 % (11.6-17.2); WHITE BLOOD COUNT 7.1 TH/MM3 (4.0-11.0)
[2017-12-10 14:06] LABS: CHOLESTEROL 110 MG/DL (120-200)
[2017-12-10 14:07] LABS: ALBUMIN 3.6 GM/DL (3.4-5.0); AST (GOT) 33 U/L (15-37); BICARBONATE 25.7 MEQ/L (21.0-32.0); BLOOD UREA NITROGEN 13 MG/DL (7-18); CALCIUM 9.1 MG/DL (8.5-10.1); CHLORIDE 102 MEQ/L (98-107); CREATININE 0.97 MG/DL (0.50-1.00); GLOMERULAR FILTRATION RATE 55 ML/MIN (>89); GLUCOSE,FASTING 166 MG/DL (74-99); IRON (FE) 32 MCG/DL (50-170); SODIUM (NA) 138 MEQ/L (136-145)
[2017-12-10 14:15] LABS: % SATURATION IRON PROFILE 5.9 % (20-50); ALKALINE PHOSPHATASE 92 U/L (45-117); ALT (GPT) 13 U/L (10-53); CHOLESTEROL/ HDL RATIO 2.69 RATIO; HDL CHOLESTEROL 40.8 MG/DL (40.0-60.0); LDL CHOLESTEROL 46 MG/DL (0-99); TOTAL BILIRUBIN ADULT 0.7 MG/DL (0.2-1.0); TOTAL IRON BINDING CAPACITY 546 MCG/DL (250-450); TOTAL PROTEIN 7.6 GM/DL (6.4-8.2); TRIGLYCERIDES 118 MG/DL (42-150)
[2017-12-10 14:32] LABS: HEMOGLOBIN A1C 8.9 % (4.3-6.0)
== END ==
LOC: PLAB 09:28
PROVIDERS: ATTEND Family Medicine
DX: I48.91 Unspecified atrial fibrillation (principal); E11.9 Type 2 diabetes mellitus without complications; E78.5 Hyperlipidemia, unspecified; R53.83 Other fatigue; D64.9 Anemia, unspecified
CPT/HCPCS: 36415; 80053; 80061; 82043; 83036; 83540; 83550; 84443; 85025